=== PATIENT | female | born 1975 | race Caucasian/White ===

== ENCOUNTER 2019-06-24 11:32 | Emergency (ER) | payer BC, OTHER ==
[~2019-06-24] VITALS: Ht 160 cm; Wt 59.1 kg
[2019-06-24] MEDS ORDERED: normal saline 1000ML IV soln IVB ONE (12:10)
[2019-06-24] MEDS ORDERED: ondansetron/PF 4mg/2ml inj IV ONE (12:10)
[2019-06-24] MEDS ORDERED: morphine 4 MG/ML inj SYRINge IV ONE (12:10)
[2019-06-24 12:55] LABS: BASOPHILS % (AUTO) 0.4 % (0-1); EOSINOPHILS % (AUTO) 0.2 % (0-6); HEMATOCRIT 36.6 % (35.0-45.0); HEMOGLOBIN 12.8 g/dl (12.0-16.0); LYMPHOCYTES # (AUTO) 0.8 X10'3 (1.1-4.8); LYMPHOCYTES % (AUTO) 17.9 % (21-51); MEAN CORPUSCULAR HEMOGLOBIN 31.8 PG (27.0-31.0); MEAN CORPUSCULAR HGB CONC 34.9 g/dL (33.0-36.5); MEAN CORPUSCULAR VOLUME 91.2 FL (78-98); MEAN PLATELET VOLUME 8.2 FL (7.4-10.4); MONOCYTES # (AUTO) 0.5 X10'3 (0-0.9); MONOCYTES % (AUTO) 11.4 % (2-12); NEUTROPHILS # (AUTO) 3.2 X10'3 (1.8-7.7); NEUTROPHILS % (AUTO) 70.1 % (42-75); PLATELET COUNT 173 X10'3 (140-440); RED BLOOD COUNT 4.01 X10'6 (4.20-5.60); RED CELL DISTRIBUTION WIDTH 13.3 % (11.5-14.5); WHITE BLOOD COUNT 4.5 X10'3 (4.5-11.0)
[2019-06-24 13:00] VITALS: BP 130/85
[2019-06-24 13:05] LABS: ALANINE AMINOTRANSFERASE 40 U/L (12-78); ALBUMIN 3.5 G/DL (3.4-5.0); ALBUMIN/GLOBULIN RATIO 0.8 (1.1-1.5); ALKALINE PHOSPHATASE 55 IU/L (46-116); ANION GAP 12 (8-16); ASPARTATE AMINO TRANSFERASE 28 U/L (10-37); BILIRUBIN,TOTAL 0.3 MG/DL (0.1-1.0); BLOOD UREA NITROGEN 4 MG/DL (7-18); BUN/CREATININE RATIO 5.1 (6.6-38.0); CALCIUM 8.8 MG/DL (8.5-10.1); CHLORIDE 96 MMOL/L (99-107); CREATININE 0.79 MG/DL (0.40-0.90); GLUCOSE 97 MG/DL (70-104); POTASSIUM 3.6 MMOL/L (3.5-5.1); SODIUM 132 MMOL/L (135-145); TOTAL CARBON DIOXIDE 23.6 MMOL/L (24-32); TOTAL PROTEIN 7.9 G/DL (6.4-8.2); eGFR 79 ML/MIN
[2019-06-24] MEDS ORDERED: LEVO750T21 PO (13:27)
== END 2019-06-24 14:07 | disposition home or self-care (01) ==
LOC: ER 11:33
DX: J18.9 Pneumonia, unspecified organism (principal); R51 Headache; F12.90 Cannabis use, unspecified, uncomplicated; Z88.2 Allergy status to sulfonamides
CPT/HCPCS: 36415; 71046; 80053; 83605; 85025; 87040; 96374; 96375; 99284; J2270; J2405; J7030

== ENCOUNTER 2020-08-25 11:27 | Emergency (ER) | payer OTHER ==
[~2020-08-25] VITALS: Ht 162.6 cm; Wt 64.1 kg
[2020-08-25 11:28] VITALS: BP 205/126
[2020-08-25] MEDS ORDERED: AMOX-580 PO (12:14)
[2020-08-25] MEDS ORDERED: amox tr/potassium clavulanate 875/125mg TAB PO ONE (12:15)
== END 2020-08-25 13:25 | disposition home or self-care (01) ==
LOC: ER 11:27
DX: S41.112A Laceration without foreign body of left upper arm, initial encounter (principal); S41.132A Puncture wound without foreign body of left upper arm, initial encounter; F12.90 Cannabis use, unspecified, uncomplicated; Z88.2 Allergy status to sulfonamides; Z79.2 Long term (current) use of antibiotics; W54.0XXA Bitten by dog, initial encounter; Y93.89 Activity, other specified; Y92.89 Other specified places as the place of occurrence of the external cause; Y99.8 Other external cause status
CPT/HCPCS: 12002; 99283

== ENCOUNTER 2023-09-19 01:15 | Emergency (ER) | payer MEDICAID, OTHER ==
[~2023-09-19] VITALS: Ht 162.6 cm; Wt 58.2 kg
[2023-09-19] MEDS ORDERED: iohexol 300mg/ml 100ml inj. ONE (01:32)
--- NOTE | 2023-09-19 01:32 | NUR ---
dr san at bedside.
--- NOTE | 2023-09-19 02:01 | NUR ---
Patient to CT
--- NOTE | 2023-09-19 02:21 | NUR ---
patient back from CT
--- NOTE | 2023-09-19 02:34 | NUR ---
labs drawn and sent to lab at 0230
[2023-09-19] MEDS ORDERED: bacitracin 15gm ointment TP ONE (02:40)
[2023-09-19] MEDS ORDERED: TETanus/Pertussis (Acell)/Diphther VAC/PF (Tdap-Adult) 0.5ml syringe IMVAC ONE (02:40)
[2023-09-19 03:00] VITALS: TEMP 98.7
--- NOTE | 2023-09-19 03:01 | NUR ---
c-collar applied per dr san request. pt agrees to wear c-collar after speaking with dr san.
[2023-09-19] MEDS ORDERED: fentaNYL/PF 50MCG/1 ML 2ML syringe IV ONE ×2 (03:25→04:05)
[2023-09-19] MEDS ORDERED: ondansetron/PF 4mg/2ml inj IV ONE (03:25)
[2023-09-19 03:35] LABS: BASOPHILS % (AUTO) 0.6 % (0-1); EOSINOPHILS % (AUTO) 0.2 % (0-6); HEMATOCRIT 40.2 % (35.0-45.0); HEMOGLOBIN 13.6 g/dl (12.0-16.0); LYMPHOCYTES # (AUTO) 1.4 X10'3 (1.1-4.8); LYMPHOCYTES % (AUTO) 20.2 % (21-51); MEAN CORPUSCULAR HEMOGLOBIN 28.9 PG (27.0-31.0); MEAN CORPUSCULAR HGB CONC 33.8 g/dL (33.0-36.5); MEAN CORPUSCULAR VOLUME 85.7 FL (78-98); MEAN PLATELET VOLUME 8.4 FL (7.4-10.4); MONOCYTES # (AUTO) 0.3 X10'3 (0-0.9); MONOCYTES % (AUTO) 3.8 % (2-12); NEUTROPHILS # (AUTO) 5.2 X10'3 (1.8-7.7); NEUTROPHILS % (AUTO) 75.2 % (42-75); PLATELET COUNT 217 X10'3 (140-440); RED BLOOD COUNT 4.69 X10'6 (4.20-5.60); RED CELL DISTRIBUTION WIDTH 15.3 % (11.5-14.5)
[2023-09-19 03:48] LABS: ALANINE AMINOTRANSFERASE 21 U/L (12-78); ALBUMIN 4.5 G/DL (3.4-5.0); ALBUMIN/GLOBULIN RATIO 1.3 (1.1-1.5); ALKALINE PHOSPHATASE 52 IU/L (46-116); ANION GAP 13 (8-16); ASPARTATE AMINO TRANSFERASE 20 U/L (10-37); BILIRUBIN,TOTAL 0.2 MG/DL (0.1-1.0); BLOOD UREA NITROGEN 9 MG/DL (7-18); BUN/CREATININE RATIO 11.7 (10.0-20.0); CALCIUM 9.3 MG/DL (8.5-10.1); CHLORIDE 102 MMOL/L (99-107); CREATININE 0.77 MG/DL (0.40-0.90); ETHANOL 224 MG/DL (<10); GLUCOSE 92 MG/DL (70-104); POTASSIUM 3.7 MMOL/L (3.5-5.1); SODIUM 138 MMOL/L (135-145); TOTAL PROTEIN 7.9 G/DL (6.4-8.2); eCRCL 76 ML/MIN; eGFR 80 ML/MIN
--- NOTE | 2023-09-19 03:56 | NUR ---
NEW BLUE TOP SENT TO LAB PER THEIR REQUEST
[2023-09-19 04:18] LABS: INR 0.9 INR; PROTHROMBIN TIME 10.2 SECONDS (9.0-12.0)
[2023-09-19] MEDS ORDERED: ketorolac trometh. 30mg/ml inj. IV ONE (04:35)
[2023-09-19] MEDS ORDERED: HYDROcodone/acetaminophen 5mg/325mg tablet PO ONE (04:35)
[2023-09-19] MEDS ORDERED: ondansetron 4mg rapidly disintigrating tab PO ONE (04:35)
--- NOTE | 2023-09-19 04:39 | NUR ---
c-collar changed to soft collar, patient tolerated well.
[2023-09-19] MEDS ORDERED: HYDR-3965 PO (04:43)
[2023-09-19] MEDS ORDERED: ONDA8TAB13 PO (04:43)
[2023-09-19 04:46] VITALS: BP 111/84; PULSE 92; RESP 15; O2SAT 97
--- NOTE | 2023-09-19 04:59 | NUR ---
PATIENT AMBULATORY TO RESTROOM INDEPENDENTLY WITH STEADY GAIT. PATIENT STATES NAUSEA HAS IMPROVED.
--- NOTE | 2023-09-19 05:17 | NUR ---
SWEATSHIRT PROVIDED FOR PATIENT. MINI CALLED FOR PATIENT TO BE TAKEN HOME, DAUGHTER WAITING FOR PATIENT AT HOME.
== END 2023-09-19 05:20 | disposition home or self-care (01) ==
LOC: ER 01:16
DX: S12.300A Unspecified displaced fracture of fourth cervical vertebra, initial encounter for closed fracture (principal); Z20.822 Contact with and (suspected) exposure to COVID-19; S01.01XA Laceration without foreign body of scalp, initial encounter; F10.129 Alcohol abuse with intoxication, unspecified; G89.29 Other chronic pain; F12.90 Cannabis use, unspecified, uncomplicated; Z78.9 Other specified health status; Z88.1 Allergy status to other antibiotic agents; Z79.899 Other long term (current) drug therapy; Y90.7 Blood alcohol level of 200-239 mg/100 ml; W22.11XA Striking against or struck by driver side automobile airbag, initial encounter; Y93.89 Activity, other specified; Y92.89 Other specified places as the place of occurrence of the external cause; Y99.8 Other external cause status
CPT/HCPCS: 12004; 36415; 70450; 71250; 72125; 74176; 80053; 80320; 84484; 85025; 85610; 86885; 86900; 86901; 87811; 90471; 90715; 96374; 96375; 96376; 99285; J1885; J2405; J3010; L0172; 90461; A6449; J3490; Q9967

== ENCOUNTER 2025-10-17 12:37 | Emergency (ER) | payer MEDICARE, MEDICAID ==
[~2025-10-17] VITALS: Ht 160 cm; Wt 58.2 kg
[~2025-10-17 12:37] MED LIST: ONDA-245 PO
[2025-10-17 12:42] VITALS: BP 162/106; PULSE 101; TEMP 98.7; O2SAT 100
--- NOTE | 2025-10-17 12:50 | ELECTROCARDIOGRAPH REPORT ---
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 ONEIL Montejo Measurements Intervals [place] Rate: 92 P: 77 UT: 121 QRS: 76 QRSD: 88 T: -86 QT: 298 QTc: 369 Interpretive Statements Sinus rhythm Nonspecific repol abnrm, inferolateral lds Baseline wander in lead(s) I,II,aVR,V2 Electronically Signed On 10-18-2025 16:55:[address] ONEIL Montejo Please click the below link to view image of tracing.
--- NOTE | 2025-10-17 13:08 | RADIOLOGY REPORT ---
EXAM: DI CHEST,SINGLE VIEW Indication: CP Technique: Single frontal view of the chest was obtained Comparison: CT CT CHEST ABDOMEN PELVIS on DOS: 09/19/23 FINDINGS: Lines and Tubes: None Lungs: No focal consolidation. Pleura: No effusion. No pneumothorax. Cardiomediastinal contours: Unremarkable Bones: No acute osseous abnormality. IMPRESSION: No acute cardiopulmonary disease.
[2025-10-17 13:11] LABS: MEAN PLATELET VOLUME 8.1 FL (7.4-10.4); RED CELL DISTRIBUTION WIDTH 14.5 % (11.5-14.5)
[2025-10-17 13:26] LABS: CREATININE 0.64 MG/DL (0.40-0.90); PRO BRAIN NATRIURETIC PEPTIDE < 30 PG/ML (0-125); TOTAL CARBON DIOXIDE 30.0 MMOL/L (24-32); eCRCL 86 ML/MIN; eGFR > 90 ML/MIN
[2025-10-17 14:50] VITALS: RESP 16
--- NOTE | 2025-10-17 16:40 | Physician Documentation ---
History of Present Illness ~ Chief Complaint: Chest Pain Stated Complaint: IRREG HEART RATE HX OF ANXIETY Time Seen by MD: 14:46 Primary Medical Doctor: none HPI This is a 50-year-old female with a history of hypertension and anxiety who presents with two days of intermittent palpitations and intermittent sternal chest pressure radiating to her left chest. Patient reports she had an episode of chest tightness last night lasting about 45 minutes. Patient reports that she has had several episodes of palpitations each lasting around 3 minutes. Patient reports no cardiac history. Medication Reconciliation Allergies: Coded Allergies: Sulfa (Sulfonamide Antibiotics) (Verified Allergy, Unknown, rash, 10/17/25) Scheduled Ondansetron 8mg ODT (Ondansetron Odt), 1 TAB PO Q6H Past Medical History Past Medical History: Hypertension, Chronic Pain, Chronic Back Pain Past Surgical History: noncontributory Smoking Status: Never smoker Alcohol Use: Occasionally Drug Use: marijuana Lives with: Family Lives In: Home Occupation: employed Review of Systems ROS As stated above in the HPI, otherwise all systems are reviewed and negative. Physical Exam Vital Signs: Temperature: 98.7, Source: Oral, Heart Rate: 101, Respiratory Rate: 16, BP: 162/106, Pulse Oximetry: 100, Weight: 58.200 Oxygen Flow Rate: 0 Physical Exam VITALS: Reviewed and as above. GENERAL: Alert, nontoxic appearing, no apparent distress. RESPIRATORY: No increased work of breathing, no respiratory distress, speaking in full clear sentences, clear lung sounds in all [place] CV: Regular rate and rhythm no murmur Progress Results/Orders Results/Orders Vital Signs 10/17/25 10/17/25 12:42 14:50 Temp 98.7 Pulse 101 Resp 18 16 B/P (MAP) 162/106 Pulse Ox 100 O2 Flow Rate 0 Laboratory Tests Test 10/17/25 12:55 10/17/25 14:41 10/17/25 15:43 White Blood Count 4.5 Red Blood Count 4.64 Hemoglobin 13.7 Hematocrit 40.6 Mean Corpuscular Volume 87.5 Mean Corpuscular Hemoglobin 29.6 Mean Corpuscular Hemoglobin Concent 33.9 Red Cell Distribution Width 14.5 Platelet Count 175 Mean Platelet Volume 8.1 Neutrophils (%) (Auto) 52.2 Lymphocytes (%) (Auto) 38.5 Monocytes (%) (Auto) 5.8 Eosinophils (%) (Auto) 2.5 Basophils (%) (Auto) 1.0 Neutrophils # (Auto) 2.3 Lymphocytes # (Auto) 1.7 Monocytes # (Auto) 0.3 Eosinophils # (Auto) 0.1 Basophils # (Auto) 0.0 CBC Comment Sodium Level 138 Potassium Level 4.1 Chloride Level 104 Carbon Dioxide Level 30.0 Anion Gap 4 L Blood Urea Nitrogen 10 Creatinine 0.64 Estimated GFR/1.73 m2 > 90 BUN/Creatinine Ratio 15.6 Glucose Level 93 Calcium Level 9.1 Troponin I High Sensitivity 5 5 5 Pro-B-Type Natriuretic Peptide < 30 Albumin 4.2 Chemistry Comments Troponin I High Sens Percent Delta 0 0 Troponin I Hi Sens Absolute Change 0 0 EKG/XRAY/CT/US/VASC/MRI EKG : Additional Comment EKG at 1249 interpreted by myself as: Sinus rhythm at a rate of 92, normal axis, no ST segment elevation or depression Chest X-Ray : Additional Comments Exam: CHEST,SINGLE VIEW EXAM: DI CHEST,SINGLE VIEW Indication: CP Technique: Single frontal view of the chest was obtained Comparison: CT CT CHEST ABDOMEN PELVIS on DOS: 09/19/23 FINDINGS: Lines and Tubes: None Lungs: No focal consolidation. Pleura: No effusion. No pneumothorax. Cardiomediastinal contours: Unremarkable Bones: No acute osseous abnormality. IMPRESSION: No acute cardiopulmonary disease. Electronically Signed by:ALEA GOMEZ MD Date & Time: 10/17/25 130 Dictated by: ALEA GOMEZ MD Dictation date and time: 10/17/25 130 I have reviewed and agree with the radiology report. I have reviewed and interpreted the imaging as: No focal consolidation or pneumothorax Heart Score: Heart Score Response (Comments) Value History Slightly Suspicious 0 EKG Normal 0 Age 45-64 1 Risk Factors 1 or 2 risk factors 1 Troponin Normal limit 0 Total 2 Medical Decision Making Additional information obtaine: N/A Findings This 50-year-old female presented with episodes of palpitations and chest tightness. It was reassuring patient reported no chest tightness during ER visit and palpitations were short lived. Heart score of two, troponins not elevated, EKG without evidence of infarction or ischemia, patient is otherwise well-appearing with remainder of physical exam benign. Lab work did not demonstrate clinically significant abnormality. Patient is appropriate for outpatient follow up and has been advised to follow up with the primary care provider and referral for [employer] for Holter monitor due to palpitations. Patient provided careful return to care precautions which he verbalized understanding of. Heart Score: 2 Differential Dx:Considerations: Include: angina, aortic dissection, chest wall pain, cholelithiasis, CHF, costochondritis, esophageal reflux/spasm, gastritis, herpes zoster, myocardial infarction, pericarditis, pleuritis, pancreatitis, pneumonia, pneumothorax, pulmonary embolus Departure Time of Disposition: 16:38 Disposition: HOME / SELF CARE / HOMELESS Impression: Primary Impression: Chest pain Qualified Codes: R07.9 - Chest pain, unspecified Additional Impression: Palpitations Condition: Improved Discharge Instructions: Nonspecific Chest Pain, Adult, Palpitations Additional Instructions: Your exam today was reassuring, follow up with your primary care provider for referral for a [employer] as you would likely benefit from continuous monitoring for your episodes of palpitations. Please follow up with your primary care provider in the next few days. Please return to the emergency department for any new or worsening concerning symptoms including but not limited to worsening chest pain or shortness of breath. Referrals: NO PRIMARY CARE PROVIDER (PCP) Education Educated: Patient Educated regarding: diagnosis, treatment, prognosis, need for follow up Signature Scribe Signature: No scribe Attestation: The note accurately reflects work and decisions made by me.APOLLO Armas 10/18/25 00:50 MAUREEN STALEY Oct 17, 2025 16:40
== END 2025-10-17 16:47 | disposition home or self-care (01) ==
LOC: ER 12:38
DX: R07.9 Chest pain, unspecified (principal); R00.2 Palpitations; I10 Essential (primary) hypertension; G89.29 Other chronic pain; F12.90 Cannabis use, unspecified, uncomplicated; Z88.2 Allergy status to sulfonamides; Z79.899 Other long term (current) drug therapy; Z72.89 Other problems related to lifestyle
CPT/HCPCS: 36415; 71045; 80048; 83880; 84484; 85025; 93005; 99285